=== PATIENT | male | born 1990 ===

== ENCOUNTER 2016-10-18 05:30 | Emergency (ER) | payer OTHER ==
[2016-10-18 05:34] VITALS: BP 118/81; PULSE 88; RESP 18; TEMP 98; O2SAT 100
[2016-10-18] MEDS ORDERED: Albuterol-Ipratrop 3 mg / 0.5 (3 ml) UD INH STA (05:56)
--- NOTE | 2016-10-18 05:59 | ED PDOC ---
HPI: SOB/CHF/COPD Chief Complaint (Provider): Short of breath History Per: Patient History/Exam Limitations: no limitations Onset/Duration Of Symptoms: Sudden Onset (shortly before arrival) Current Symptoms Are (Timing): Still Present Initiating Event: Exercising/Sports, Exposure To Smoke Quality: Tightness Exacerbating Factor(s): Exertion Current Respiratory Medications: Albuterol Severity: None Pain Scale Rating Of: 0 Associated Symptoms: denies: Chest Pain, Bloody Cough, Productive Cough, Dizziness, Light-headedness <Mendel Michel - Last Filed: 10/18/16 06:21> <Bernard Romero - Last Filed: 10/18/16 13:46> Time Seen by Provider: 10/18/16 05:44 Chief Complaint (Nursing): Respiratory Distress Additional Complaint(s): Pt. here today complaining of shortness of breath sudden in onset shortly before arrival. Pt. reports has not been taking Albuterol because it ran out 1 week ago. Pt. reports that he has been having a dry intermittent cough, nasal congestion for the past week but without any breathing difficulties. Pt. states was lying in bed when he felt short of breath associated with wheezing. Pt. then had his father called EMS. Pt. denies any recent travel, immobilization, trauma, or limb pain. (Mendel Michel) Supervising Attending Note - Supervising Attending Note The Documented history was done by the: Physician Mission Assessment Specialist, Attending Physician The documented physical exam was done by the: Physician Mission Assessment Specialist, Attending Physician The documented procedures were done by the: Physician Mission Assessment Specialist, Attending Physician - Attestation: I have personally seen and examined this patient.: Yes I have fully participated in the care of the patient.: Yes I have reviewed all pertinent clinical information, including history, physical exam and plan: Yes <Bernard Romero - Last Filed: 10/18/16 13:46> Past Medical History - Medical History PMH: Asthma - Surgical History Surgical History: No Surg Hx - Family History Family History: States: Unknown Family Hx - Living Arrangements Living Arrangements: With Family - Social History Current smoker - smoking cessation education provided: Yes (Social) Alcohol: Social Drugs: Denies <Mendel Michel - Last Filed: 10/18/16 06:21> <Bernard Romero - Last Filed: 10/18/16 13:46> Vital Signs: Last Vital Signs Temp 98 F 10/18/16 05:33 Pulse 88 10/18/16 05:33 Resp 18 10/18/16 05:33 BP 118/81 10/18/16 05:33 Pulse Ox 100 10/18/16 06:21 - Allergies Allergies/Adverse Reactions: Allergies Allergy/AdvReac Type Severity Reaction Status Date / Time No Known Allergies Allergy Verified 10/18/16 05:32 Curb-65 Severity Score - CURB-65 Severity Score Confusion: No Bun >19mg/dl (>7mmol/L): No Respiratory Rate greater than/equal to 30: No Systolic BP <90 or Diastolic BP less than/equal 60mmHg: No Age >64: No Curb-65 Score: 0 Percentage 30-day mortality: 0.6% <MichelMendel - Last Filed: 10/18/16 06:21> Wells Criteria for PE - Wells Criteria for Pulmonary Embolism Clinical Signs and Symptoms of DVT: No P.E is #1 Diagnosis, or Equally Likely: No Heart Rate >100: No Immobilization at least 3 days;Surgery previous 4 weeks: No Previous, objectively diagnosed PE or DVT: No Hemoptysis: No Malignancy w/treatment within 6 months, or palliative: No Total Score: 0 <MichelMendel - Last Filed: 10/18/16 06:21> Review of Systems Constitutional: Negative for: Fever, Chills, Sweats Eyes: Negative for: Pain, Vision Change ENT: Negative for: Ear Pain, Ear Discharge, Nose Pain, Nose Discharge Cardiovascular: Negative for: Chest Pain, Palpitations, Orthopnea Respiratory: Positive for: Cough, Shortness of Breath, Wheezing. Negative for: Hemoptysis, SOB with Exertion, Pleuritic Pain, Sputum Gastrointestinal: Negative for: Nausea, Vomiting, Abdominal Pain, Diarrhea Genitourinary Male: Negative for: Dysuria, Frequency, Incontinence Musculoskeletal: Negative for: Neck Pain, Shoulder Pain, Arm Pain Skin: Negative for: Rash, Lesions Neurological: Negative for: Weakness, Numbness, Incoordination, Change in Speech Psych: Negative for: Anxiety, Depression <AnandMendel - Last Filed: 10/18/16 06:21> Physical Exam - Physical Exam Appears: Positive for: Non-toxic, In Acute Distress (mild respiratory distress) Head Exam: Positive for: ATRAUMATIC, NORMOCEPHALIC Skin: Positive for: Normal Color, Warm, Dry Neck: Positive for: Painless ROM, Supple Cardiovascular/Chest: Positive for: Regular Rate, Rhythm. Negative for: Murmur Respiratory: Positive for: Decreased Breath Sounds, Wheezing (bilateral basilar wheezing ), Respiratory Distress (Mild ). Negative for: Accessory Muscle Use Gastrointestinal/Abdominal: Positive for: Soft. Negative for: Tenderness Extremity: Negative for: Pedal Edema, Calf Tenderness Neurologic/Psych: Positive for: Alert, Oriented <AnandMendel - Last Filed: 10/18/16 06:21> - ECG O2 Sat by Pulse Oximetry: 100 - Progress Re-evaluation Time: 06:16 Condition: Improved <MichelMendel - Last Filed: 10/18/16 06:21> <Bernard Romero - Last Filed: 10/18/16 13:46> - Progress ED Course And Treament: Duoneb x 3 Prednisone 60mg po once (MichelMendel) Nebulizer Treatments/Peak Flow - Duonebs Number of Bronchodilator Doses given?: 2 <Mendel Michel - Last Filed: 10/18/16 06:21> Medical Decision Making <MichelMendel - Last Filed: 10/18/16 06:21> <Bernard Romero - Last Filed: 10/18/16 13:46> Medical Decision Makin y.o. male with hx of well controlled asthma who ran out of his medications with acute asthma exacerbation with subsequent Duonebs and PO Prednison stable for discharge to home (MichelMendel) Disposition - Patient ED Disposition Is Patient to be Admitted: No Discussed With : Bernard Romero - Disposition Disposition: Routine/Home Disposition Time: 06:20 <Mendel Michel - Last Filed: 10/18/16 06:21> <Bernard Romero - Last Filed: 10/18/16 13:46> - Clinical Impression Clinical Impression: Asthma attack, Acute asthma exacerbation - Disposition Referrals: [facility] [Outside] Speedy Knight MD [Family Provider] - Condition: GOOD Additional Instructions: Take medications as instructed. Return for worsening. Follow up with your PCP in 2-3 days. Prescriptions: Albuterol HFA [Ventolin HFA 90 mcg/actuation (8 g)] 2 puff IH Q4 PRN #1 inh PRN Reason: Wheezing Fluticasone/Salmeterol 250/50 [Advair Diskus] 1 puff IH BID #1 inh Prednisone 50 mg PO DAILY #4 tab Instructions: Asthma (ED)
[2016-10-18] MEDS: Albuterol-Ipratrop 3 mg / 0.5 (3 ml) UD INH STA (06:04)
== END 2016-10-18 06:49 | disposition home or self-care (01) ==
LOC: H.ER 05:30
DX: J45.901 Unspecified asthma with (acute) exacerbation (principal); F17.200 Nicotine dependence, unspecified, uncomplicated